=== PATIENT | female | born 1955 | race African-American/Black ===

== ENCOUNTER 2022-10-30 15:07 | Emergency (ER) | payer SELFPAY | END 2022-10-30 18:49 | disposition left against medical advice (07) | LOC: EDBD 15:07 → ER 15:10 | DX: Z04.1 Encounter for examination and observation following transport accident (principal); Z53.21 Procedure and treatment not carried out due to patient leaving prior to being seen by health care provider ==

== ENCOUNTER 2024-12-10 07:43 | Inpatient (IN) | payer BC ==
[~2024-12-10] VITALS: Ht 167.6 cm; Wt 85.6 kg
[2024-12-10] VITALS (10 sets, daily range): BP systolic 102–130; BP diastolic 66–85; PULSE 53–74; RESP 12–20; TEMP 96.8–97.4; O2SAT 94–100
[2024-12-10] MEDS ORDERED: BUPIVACAINE/DEXTROSE MPF 0.75% 2 ML AMP IT ONE (07:51)
[2024-12-10] MEDS ORDERED: KETAMINE 50mg/ML 1ml syringe ONE (07:51)
[2024-12-10] MEDS ORDERED: MORPHINE SULF PF 5 MG/10 ML VIAL ONE (07:51)
[2024-12-10] MEDS ORDERED: PROPOFOL 10 MG/ML 20 ML IV ONE (07:51)
[2024-12-10] MEDS ORDERED: fentaNYL CITRATE 100 MCG/2 ML VL ONE (07:51)
[2024-12-10] MEDS ORDERED: EPINEPHrine HCL 1 MG/1 ML AMP ONE (07:51)
[2024-12-10] MEDS ORDERED: ONDANSETRON HCL 4 MG/2 ML VIAL ONE (07:51)
[2024-12-10] MEDS ORDERED: SODIUM CHLORIDE LOCK 10 ML ONE (07:51)
[2024-12-10] MEDS ORDERED: MIDAZOLAM HCL 2MG/2ML 2ml VIAL (1mg/ml) ONE (07:51)
[2024-12-10] MEDS: BUPIVACAINE 0.25% INJ 50ML VIAL ONE (08:00)
[2024-12-10] MEDS: TRANEXAMIC ACID 20 ML ONE (08:00)
[2024-12-10] MEDS: TETRACAINE 1% INJ 2 ML VIAL IJ ONE (08:01)
[2024-12-10] MEDS: KETOROLAC TROMETH 30 MG/ML 1ML VIAL ONE (08:02)
[2024-12-10] MEDS: VANCOMYCIN HCL 1000 MG VL ONE ×2 (08:02→12:32)
[2024-12-10] MEDS: CELECOXIB 100 MG CAP ONE (09:00)
[2024-12-10] MEDS: METOCLOPRAMIDE HCL 5MG/ml INJ 2ml VIAL IV ONE (09:45)
[2024-12-10] MEDS ORDERED: diphenhdrAMINE HCL 50 MG/1 ML VL IV PRN (09:45)
[2024-12-10] MEDS ORDERED: MORPHINE SULFATE 4 MG/ML SYR/VIAL IV PRN (09:45)
[2024-12-10] MEDS ORDERED: HYDROmorphone HCL 2 MG/ML VL/or syr IV PRN ×3 (09:45→12:00)
[2024-12-10] MEDS ORDERED: MORPHINE SULFATE INJ 2 MG/ml SYRG IV PRN ×2 (09:45→12:00)
[2024-12-10] MEDS ORDERED: NALOXONE HCL 0.4 MG/ML VIAL IV PRN (09:45)
[2024-12-10] MEDS: ACETAMINOPHEN IV 1000 MG/100ML (10MG/ML) IV ONE (10:45)
[2024-12-10] MEDS: CELECOXIB 100 MG CAP PO ONE (10:45)
[2024-12-10] MEDS: PREGABALIN CAPSULE 75 MG CAP PO ONE (10:45)
[2024-12-10] MEDS: LACTATED RINGER'S 1,000 ML IV SCH (12:00)
[2024-12-10] MEDS ORDERED: NITROGLYCERIN 0.4 MG SL TAB SL PRN (12:00)
[2024-12-10] MEDS: ceFAZolin 2 GM/D5W100ml 100 ML IV ONE (13:40)
[2024-12-10] MEDS: SODIUM CHLOR 0.9% PF (SALINE LOCK) 10ML VIAL/SYR IV SCH (14:00)
[2024-12-10] MEDS ORDERED: ceFAZolin 1GM/50ML 50 ML IV SCH (16:35)
--- NOTE | 2024-12-10 17:26 | DVH ---
CLINICAL INDICATION: sp Left LIAN TECHNIQUE: XY PELVIS AP Comparison: None FINDINGS/IMPRESSION: : There is no evidence of acute fracture or dislocation. Soft tissues are unremarkable.
[2024-12-10] MEDS: ceFAZolin 1GM/50ML 50 ML IV SCH (20:54)
[2024-12-11] VITALS (22 sets, daily range): BP systolic 90–125; BP diastolic 55–78; PULSE 71–121; RESP 12–19; TEMP 97.5–99.4; O2SAT 92–100
[2024-12-11 07:07] LABS: Hematocrit 36.7 % (36.0-46.0); Hemoglobin 12.1 g/dL (12.2-16.2)
[2024-12-11 07:33] LABS: Alanine Aminotransferase 15 U/L (7-40); Albumin 3.8 g/dL (3.2-4.8); Alkaline Phosphatase 65 U/L (46-116); Anion Gap 6 (5-15); Aspartate Aminotransferase 32 U/L (13-40); BUN/Creatinine Ratio 9.1 (10.0-20.0); Bilirubin, Total 0.5 mg/dL (0.2-1.0); Calcium 9.5 mg/dL (8.7-10.4); Carbon Dioxide 28 mmol/L (20-31); Chloride 105 mmol/L (98-107); Glucose 98 mg/dL (74-106); Sodium 139 mmol/L (136-145); Total Protein 6.1 g/dL (5.7-8.2)
[2024-12-11 07:36] LABS: Blood Urea Nitrogen 8 mg/dL (9-23); Potassium 5.4 mmol/L (3.5-5.1)
--- NOTE | 2024-12-11 08:03 | DVHPN2 ---
Progress Note Date Seen: Dec 11, 2024 Medical Necessity Reason Pt with a Central, PICC or Fol: No Subjective Patient reports: No new complaints Objective vital signs Vital Sign Date Time Temp Pulse Resp B/P (MAP) Pulse Ox O2 Delivery O2 Flow Rate FiO2 12/11/24 06:22 82 14 96 12/11/24 05:00 97.5 93/60 (71) 97.5 12/10/24 20:00 Nasal Cannula* 2 28 Total Intake and Output 12/10/24 12/10/24 12/11/24 15:00 23:00 07:00 Intake Total 200 ml 50 ml 50 ml Balance 200 ml 50 ml 50 ml medications Current Medications Medications Dose Ordered Sig/Jennifer Route Start Time Stop Time Status Last Admin Dose Admin Diphenhydramine HCl 25 mg Q4HP PRN IV 12/10/24 09:45 Lactated Ringer's 1,000 ml @ 100 mls/hr Q10H IV 12/10/24 12:00 12/10/24 12:00 100 MLS/HR Sodium Chloride 10 ml Q8HR IV 12/10/24 14:00 12/11/24 06:28 10 ML Oxycodone/ Acetaminophen 1 tab Q4HP PRN PO 12/10/24 12:00 Hydromorphone HCl 1 mg Q2HP PRN IV 12/10/24 12:00 Enoxaparin Sodium 40 mg DAILY SC 12/11/24 10:00 Nitroglycerin 0.4 mg Q5MINP PRN SL 12/10/24 12:00 Morphine Sulfate 2 mg Q30M PRN IV 12/10/24 12:00 Cefepime HCl 50 ml @ 12.5 mls/hr DAILY IV 12/11/24 10:00 Cefazolin Sodium 50 ml @ 50 mls/hr Q6H IV 12/10/24 19:30 12/11/24 08:29 12/11/24 06:26 50 MLS/HR Examination: GENERAL:Normal, MSK:Abnormal laboratory and microbiology Laboratory Tests 12/11/24 06:18 Test 12/11/24 06:18 Range/Units Serum Glucose 98 74-106 mg/dL Problem List/Assessment/Plan Problem List/Assessment/Plan 68 year old female who is s/p Left LIAN POD 1 1. Pain control 2. DVT ppx 3. WBAT LLE with walker and posterior hip precautions 4. Physical therapy with posterior hip protocol 5. Abduction pillow at night when sleeping Plan discussed with: Patient Date of Service: Dec 11, 2024 Billing Provider: YURIDIA FISHER MD Common Visit Codes: NOT BILLABLE EMILY BERMAN NP Dec 11, 2024 08:03
[2024-12-11] MEDS: CEFEPIME 1GM/ 50ML 50 ML IV SCH (08:56)
[2024-12-11] MEDS: ENOXAPARIN SOD 40 MG/0.4 ML SYRINGE SC SCH (09:02)
--- NOTE | 2024-12-11 10:13 | DVHINCON2 ---
Date of service: Dec 11, 2024 Reason for Consultation Medical management while in the hospital History of Present Illness 68 year old female who is s/p Left LIAN POD 1. Apparently patient walked outside of the room with a walker without issues today with physical therapy. Patient is seen shortness apparently he is not covering the [place] that she was prescribed. She was requesting to prescribe a different pain medication. Patient having some difficulty urinating this morning. However after drinking some water this afternoon patient able to void without significant difficulty. Patient otherwise denies any chest pain or shortness for breath. Patient does have allergies and takes Mone at home. Otherwise she was comfortable in bed. No other complaints. Other review of systems reviewed it is in normal limits Past Medical History Allergies, osteoarthritis Past Surgical History None significant noted Family History: Hypertension G8 MOTHER Allergies: Coded Allergies: NO KNOWN ALLERGIES (Unverified , 12/06/24) Home Meds No Active Prescriptions or Reported Meds Current Medications Current Medications Medications (Trade) Dose Ordered Sig/Jennifer Route PRN Reason Start Time Stop Time Status Last Admin Lactated Ringer's 1,000 ml @ 100 mls/hr Q10H IV 12/10/24 12:00 12/10/24 12:00 Sodium Chloride (Saline Lock Ns) 10 ml Q8HR IV 12/10/24 14:00 12/11/24 06:28 Cefazolin Sodium 50 ml @ 50 mls/hr Q6H IV 12/10/24 16:35 12/10/24 17:29 DC Oxycodone/ Acetaminophen (Percocet 5/ 325MG Tablet) 1 tab Q4HP PRN PO MODERATE PAIN (4-6 PAIN SCALE) 12/10/24 12:00 Hydromorphone HCl (Dilaudid Injection) 1 mg Q2HP PRN IV SEVERE PAIN (7-10 PAIN SCALE) 12/10/24 12:00 Enoxaparin Sodium (Lovenox) 40 mg DAILY SC 12/11/24 10:00 12/11/24 09:02 Nitroglycerin (Ntrostat Sublingual) 0.4 mg Q5MINP PRN SL FOR CHEST PAIN 12/10/24 12:00 Morphine Sulfate 2 mg Q30M PRN IV FOR CHEST PAIN 12/10/24 12:00 Cefepime HCl 50 ml @ 12.5 mls/hr DAILY IV 12/11/24 10:00 12/11/24 08:56 Cefazolin Sodium 50 ml @ 50 mls/hr Q6H IV 12/10/24 19:30 12/11/24 08:29 DC 12/11/24 06:26 Review of Systems No chest pain shortness for breath. No headache dizziness or lightheadedness. Other review of systems reviewed normal. Vital Signs Vital Signs Date Time Temp Pulse Resp B/P (MAP) Pulse Ox O2 Delivery O2 Flow Rate FiO2 12/11/24 09:00 99.4 117 17 116/72 (87) 93 99.4 12/10/24 20:00 Nasal Cannula* 2 28 Physical Exam Pleasant female comfortable in bed alert awake oriented x3. HEENT neck supple no JVD pupils equal round reactive to light. Heart regular rate and rhythm S1- S2 without murmurs. Lungs fair air movement chest tube will expansion no rales or wheezes. Abdomen is soft nontender nondistended positive bowel sounds. Extremities no edema positive distal pedal pulses. Labs/Diagnostic Data Labs Test 12/11/24 06:18 Range/Units Hemoglobin 12.1 L 12.2-16.2 g/dL Hematocrit 36.7 36.0-46.0 % Sodium Level 139 136-145 mmol/L Potassium Level 5.4 H 3.5-5.1 mmol/L Chloride Level 105 98-107 mmol/L Carbon Dioxide Level 28 20-31 mmol/L Anion Gap 6 5-15 Blood Urea Nitrogen 8 L 9-23 mg/dL Creatinine 0.88 0.550-1.02 mg/dL Glomerular Filtration Rate Calc 72 >90 mL/min BUN/Creatinine Ratio 9.1 L 10.0-20.0 Serum Glucose 98 74-106 mg/dL Calcium Level 9.5 8.7-10.4 mg/dL Total Bilirubin 0.5 0.2-1.0 mg/dL Aspartate Amino Transferase (AST) 32 13-40 U/L Alanine Aminotransferase (ALT) 15 7-40 U/L Alkaline Phosphatase 65 46-116 U/L Total Protein 6.1 5.7-8.2 g/dL Albumin 3.8 3.2-4.8 g/dL Assessment Seasonal allergies Status post left hip surgery I will add laxative for constipation. I will start her on trial of Flomax while she was in the hospital given her urinary complaints. We will do bladder scan to make sure she was not retaining any significant amount of urine. Otherwise continue home Mone. Continue rest of supportive care and treatment as she is on. We will have social Service consultation to arrange for home physical therapy. Otherwise further clinical management per clinical course. Discussed with the nurse and patient at bedside regarding plan of care Plan discussed with: Patient, Other MARY JOHNSON MD Dec 11, 2024 10:13
[2024-12-11] MEDS: OXYCODONE W/ ACETAMINOPHEN 5/325MG TABLET PO PRN (15:20)
[2024-12-11] MEDS: TAMSULOSIN HYDROCHLORIDE 0.4 MG CAP PO SCH (19:56)
[2024-12-11] MEDS: LACTULOSE 20Gm/30ML SOLN PO ONE (19:58)
[2024-12-11] MEDS: FEXOFENADINE HCL 60 MG TAB PO SCH (22:00)
[2024-12-12] VITALS (7 sets, daily range): BP systolic 96–115; BP diastolic 57–66; PULSE 100–117; RESP 17–20; TEMP 36.9; O2SAT 95–97
[2024-12-12 06:25] LABS: Basophils # (auto) 0 10 ^3/uL (0-0.2); Basophils % (auto) 0.2 % (0.0-2.0); Eosinophils # (auto) 0.1 10 ^3/uL (0-0.8); Eosinophils % (auto) 1.1 % (0.0-7.0); Hematocrit 33.4 % (36.0-46.0); Hemoglobin 11.1 g/dL (12.2-16.2); Lymphocytes # (auto) 0.9 10 ^3/uL (0.4-5.4); Lymphocytes % (auto) 10.5 % (10.0-50.0); Mean Corpuscular Hemoglobin 29.4 pg (28.0-32.0); Mean Corpuscular Hgb Conc. 33.4 g/dL (32.0-36.0); Monocytes # (auto) 0.8 10 ^3/uL (0-1.3); Neutrophils # (auto) 6.3 10 ^3/uL (1.6-8.6); Neutrophils % (auto) 78.2 % (37.0-80.0); Nucleated Red Blood Cells % 0.1 %; Platelet Count (auto) 219 10^3/uL (140-450); Red Blood Cells 3.79 10^6/uL (4.0-5.20); Red Cell Distribution Width 13.7 % (11.8-14.3); White Blood Cell 8.1 10^3/uL (4.4-10.8)
[2024-12-12 06:32] LABS: Anion Gap 7 (5-15); Carbon Dioxide 27 mmol/L (20-31); Chloride 104 mmol/L (98-107); Potassium 4.2 mmol/L (3.5-5.1); Sodium 138 mmol/L (136-145)
[2024-12-12 06:38] LABS: BUN/Creatinine Ratio 20.3 (10.0-20.0); Blood Urea Nitrogen 16 mg/dL (9-23)
[2024-12-12 06:43] LABS: Glucose 126 mg/dL (74-106)
[2024-12-12] MEDS: LACTULOSE 20Gm/30ML SOLN PO PRN (08:50)
--- NOTE | 2024-12-12 09:10 | DVHDS2 ---
Discharge Summary Date of Admission Dec 10, 2024 at 11:53 Date of Discharge: Dec 12, 2024 Wounds: If the wound is draining please change the gauze pad on the wound until it stops. If drainage persists past 10 days please notify our office. If there is a sticky gel dressing over your wound, you may leave this in place for as long as it is clean and dry. If it becomes loose or causes skin irritation, it is OK to remove it and place clean gauze over your wound. 1. You might notice some bruising around the surgical site, this is normal. 2. Check your temperature on a daily basis. Please note that a low-grade temp below 101 is not uncommon after surgery especially during the first 3 days. Notify the office if your temperature spikes above 101.5 after the 3 rd post-operative date. 3. Many patients experience significant swelling in the thigh, this may extend below the knee and sometimes to the ankle. Swelling increases during the first week and subsides during [place] [address] , [address] [place] [id number] [facility] Office: [phone] [facility] [address] 4. Provided you have been on a blood thinner since surgery and have been up and about at least three times per day, the risk of a blood clot is low and this swelling is an expected part of recovery. It will largely or completely resolve by your first post-operative visit. 5. [place], if present, will be removed at 2 weeks during initial post-op visit. Labs/Diagnostic Data: Laboratory Results Test 12/12/24 05:06 12/11/24 06:18 White Blood Count 8.1 10^3/uL (4.4-10.8) Red Blood Count 3.79 10^6/uL (4.0-5.20) Hemoglobin 11.1 g/dL (12.2-16.2) Hematocrit 33.4 % (36.0-46.0) Mean Corpuscular Volume 88.0 fL (80.0-100.0) Mean Corpuscular Hemoglobin 29.4 pg (28.0-32.0) Mean Corpuscular Hemoglobin Concent 33.4 g/dL (32.0-36.0) Red Cell Distribution Width 13.7 % (11.8-14.3) Platelet Count 219 10^3/uL (140-450) Mean Platelet Volume 7.8 fL (6.9-10.8) Neutrophils (%) (Auto) 78.2 % (37.0-80.0) Lymphocytes (%) (Auto) 10.5 % (10.0-50.0) Monocytes (%) (Auto) 10.0 % (0.0-12.0) Eosinophils (%) (Auto) 1.1 % (0.0-7.0) Basophils (%) (Auto) 0.2 % (0.0-2.0) Neutrophils # (Auto) 6.3 10 ^3/uL (1.6-8.6) Lymphocytes # (Auto) 0.9 10 ^3/uL (0.4-5.4) Monocytes # (Auto) 0.8 10 ^3/uL (0-1.3) Eosinophils # (Auto) 0.1 10 ^3/uL (0-0.8) Basophils # (Auto) 0 10 ^3/uL (0-0.2) Nucleated Red Blood Cells 0.1 % Sodium Level 138 mmol/L (136-145) Potassium Level 4.2 mmol/L (3.5-5.1) Chloride Level 104 mmol/L (98-107) Carbon Dioxide Level 27 mmol/L (20-31) Anion Gap 7 (5-15) Blood Urea Nitrogen 16 mg/dL (9-23) Creatinine 0.79 mg/dL (0.550-1.02) Glomerular Filtration Rate Calc 82 mL/min (>90) BUN/Creatinine Ratio 20.3 (10.0-20.0) Serum Glucose 126 mg/dL (74-106) Calcium Level 9.0 mg/dL (8.7-10.4) Total Bilirubin 0.5 mg/dL (0.2-1.0) Aspartate Amino Transferase (AST) 32 U/L (13-40) Alanine Aminotransferase (ALT) 15 U/L (7-40) Alkaline Phosphatase 65 U/L (46-116) Total Protein 6.1 g/dL (5.7-8.2) Albumin 3.8 g/dL (3.2-4.8) Other Laboratory Tests 12/12/24 05:06 Brief Hx & Hospital Course: s/p left total hip arthroplasty Condition at Discharge: Good Final Diagnosis/Problems List left hip osteoarthritis Discharge Disposition: Home with Health Services Discharge Instruct/Medications Diet: Regular Diet comment: may advance diet as tolerated, drink plenty of fluids. Avoid alcohol while taking narcotics. Activity: See Comment Activity comment: 1. You can bear as much weight as you tolerate on your hip unless specifically instructed otherwise. You may use the walking aid which you were discharged with and switch to a cane whenever you feel comfortable doing so. You should use an assistive device until you can walk comfortably without it. Keep in mind that every patient moves at their own speed of recovery so take your time. 2. A physical therapist will visit you at home. 3. Although guarantees against a dislocation do not exist, the hip was noted to be sufficiently stable in surgery. Below are motions that you should dischargenot do for 4-6 weeks, depending on the surgical approach used. If there are questions, please call the office. a. Bend forward past 90 degrees b. Sit on a regular low chair, couch, car seat etc... c. Cross your legs d. Use a regular low toilet seat. e. Sleep on your stomach or on either side. 3. High impact activity such as jumping, aerobics, tennis, and skiing are not permitted during the first 3 months after surgery. These activities can contribute to accelerated wear and should be done with caution after this time. Discuss this with your surgeon if you have questions. 4. Although a bath or whirlpool is NOT permitted during the first 2-3 weeks, you may shower as soon as you get home from the hospital provided you are able to keep your bandage clean and dry and there is no wound drainage. If you are unable to place a secured covering over your bandage bed bath/sponge bath may likely be the more appropriate option. 5. Swimming is not permitted until the wound is healed, which typically occurs approximately 3-4 weeks after surgery. Follow Up/Referral: 1. Driving is not permitted within the first 2 weeks. 2. Your first postoperative visit will take place 2weeks after discharge. Please call the office to arrange this appointment. 3. Antibiotic preventative treatment is required before dental or other invasive procedures. Please ask your surgeon about this at your first postoperative visit. Your hip replacement contains metal which may activate metal detectors. You may wish to carry a letter from your surgeon to communicate this to security personnel. If you experience chest pain, shortness of breath or severe painful calf swelling, go to the nearest emergency room to be evaluated. Please call our office once your situation is stabilized. Medications: 1. You will be discharged with pain medication, Aspirin as a blood thinner and sometimes an anti-inflammatory medication such as Celebrex or Mobic might be prescribed. Please follow the instructions regarding these medicines as provided by your nurse at the hospital. 2. Narcotic pain medication has side effects, including constipation. Please ensure you continue to take stool softeners (Colace, Senna) while taking your pain medication to help protect against constipation. Getting up and moving around at least a few times per day helps with this also. 3. Lovenox 40 Sq x 12 days followed by one regular strength 325 mg coated aspirin daily for 4 weeks after surgery. Then, take one baby aspirin, 81 mg daily for 6 weeks more. A major, yet preventable, complication of Orthopaedic Surgery is a blood clot (DVT). It is important not to miss any doses of this important medication. 4. You should restart all of your prescription medications once discharged unless specifically instructed otherwise. 5. Herbal supplements may be restarted 2 weeks after surgery. Discharge Statement: "Patient was advised to return to the ER or call 911 if any headaches, dizziness, shortness of breath, chest pain, abdominal pain, bleeding, fevers, or worsening of medical condition. Patient was counseled about treatment plan, medications, possible side effects, patientverbalized understanding. All questions were answered to the best of my ability. This discharge took greater then 30 minutes in planning, reviewing documentation, counseling the patient, and discussing with other team members." ASSESSMENT ASSESSMENT Assessment EMILY BERMAN NP Dec 12, 2024 09:10
--- NOTE | 2024-12-13 08:54 | DVHOP2 ---
Operative Report - 2 Report Details Date: 12/10/24 Preop Diagnosis: Left hip osteoarthritis Postop Diagnosis: left hip osteoarthritis Surgeon: Mehreen LOW/ Lewis Fisher MD Liberal Arts Dean: Sj MORROW Anesthesiologist: Ovidio Danielson Anesthesia: Regional Implant: Anahi Hip Consent: The patient was informed of the risks and benefits of the procedure. These include but are not limited to complications of anesthesia, postoperative infection, incomplete relief of symptoms, recurrence of symptoms, damage to blood vessels, nerves and tendons, deep venous thrombosis, pulmonary embolism and possible need for repeat surgery in the future. Estimated Blood Loss: 300 cc Name of Procedure Performed Left total hip arthroplasty Procedure Details Procedure Details: FINDINGS: Extensive degenerative disease with grade IV changes INDICATION: This patient has failed non-operative treatments for hip arthritis and is now indicated for a total hip replacement. Preoperatively in the waiting area as well as in the office, I had a long discussion with the patient regarding the plan, the expected outcome, the risks, benefits, and alternatives of surgery. The risks include, but are not limited to, infection (which may require future surgery and removal of implants) , bleeding (which may require a transfusion), damage to nerves, arteries, veins, tendons, muscles and other adjacent structures. Also discussed the possibilities of dislocation, leg-length discrepancy, intraoperative fractures, implant loosening, heterotopic bone formation, and revision for variety of reasons, and medical complications etc. This was discussed at length and consent has been obtained. DESCRIPTION OF PROCEDURE: In the preoperative holding area, the consent was reviewed and the appropriate extremity was verified by the patient and marked with my initials. The patient was then transferred to the operating theatre. Appropriate anesthetia was induced. All bony prominences were well padded. A time out was performed verifying the side and site of surgery according to standard protocol. Preoperative antibiotics were given. Tranexamic acid was given. The patient was then placed in the lateral decubitus position and fixed with rigid pelvic fixation. All bony prominences were well padded and an axillary roll was placed. The affected hip area was then prepped and draped in the usual sterile fashion. We made a standard posterolateral incision sharply through the skin and carried our dissection down through subcutaneous tissue to the underlying fascia achieving hemostasis where necessary. We incised the fascia in line with our incision. We identified and protected the sciatic nerve. We took down the external rotators and hip capsule from their insertion into the greater trochanter, tagged them and retracted them posteriorly for further protection of the sciatic nerve. We then dislocated the femoral head and performed an osteotomy of the femoral neck in accordance with our pre-operative plan. The labrum was excised with a long-handle knife, and we exposed the acetabular rim and cotyloid fossa. We then reamed up to our final size in accordance with the preoperative plan. We copiously irrigated and then impacted the final cup into position. We placed acetabular dome screws into the posterior-superior quadrant in the usual fashion. We irrigated the cup and impacted the liner, checking to make sure it was well seated. Attention was then turned to the femur. We used a box osteotome followed by a canal finder to gain entry to the canal. Intramedullary contents were suctioned and care was taken to ensure they did not touch the tissues. We sequentially reamed until good cortical contact, then broached up to out final size. We trialed with the appropriate femoral neck and head and reduced the hip. The hip was taken through a full range of motion. The hip soft tissues were examined in extension and external rotation, the anterior capsule and IT band were palpated, and combined anteversion was determined to be 40 degrees. The hip was stable at maximum flexion, at 90 degrees of flexion and 45 degrees of internal rotation and the position of sleep. The hip was then dislocated and trial components removed. We copiously irrigated the wound and impacted the final femoral stem into position. The femoral head was impacted onto a clean and dry trunion and confirmed to be seated. The hip was reduced ensuring to tissues in the acetabular cup. We again brought it through a full functional range of motion and there was no evidence for dislocation, instability, or impingement. The checkpoint was removed. A dilute betadine solution (17.5mL in 500mL saline) was used to wash the joint and left to sit for 3 minutes. This was then irrigated out with copious amounts of pulse lavage. We sprinkled 1g vancomycin powder below the fascia and 1g above the fascia. We copiously irrigated the wound and soft tissues. The short external rotators and capsule were repaired to the greater trochanter through drill holes, and the quadratus was repaired. We palpated the sciatic nerve in continuity without tension. The fascia was closed with vicryl and a barbed suture. We closed over the fascia with vicryl suture and re-approximated the skin with anish. . A sterile dressing was placed. We returned the patient to the supine position. We verified all lower extremity compartments were soft and compressible and that we had intact distal pulses and checked our leg length worship. Condition Good Disposition Still a Patient LEWIS FISHER MD Dec 13, 2024 08:54
== END 2024-12-12 14:15 | disposition home health service (06) | DRG 470 ==
LOC: SUR 07:43 → OVERFLOW 11:53 → TELE-WESTW 18:45
PROVIDERS: ADMIT Orthopaedic Surgery Adult Reconstructive Orthopaedic Surgery; ATTEND Orthopaedic Surgery
PROC: 0SRB0JZ Replacement of Left Hip Joint with Synthetic Substitute, Open Approach (ICD-10-PCS; principal; 2024-12-10 13:31)
DX: M16.12 Unilateral primary osteoarthritis, left hip (principal); K59.00 Constipation, unspecified; J30.2 Other seasonal allergic rhinitis; Z79.891 Long term (current) use of opiate analgesic; Z79.899 Other long term (current) drug therapy; Z82.49 Family history of ischemic heart disease and other diseases of the circulatory system
CPT/HCPCS: 36415; 72170; 80048; 80053; 85014; 85018; 85025; 86850; 86900; 86901; 97110; 97116; 97162; 97530; G0378; J0131; J0171; J1885; J2250; J2405; J2704; J3490